=== PATIENT | female | born 1995 | race Caucasian/White ===

== ENCOUNTER 2018-03-03 22:09 | Emergency (ER) | payer OTHER ==
[2018-03-03] MEDS: TETRACAINE 0.5% OPHTH SOLN 4ML OS (22:30)
[2018-03-03] MEDS: FLUORESCEIN OPHTH 1 MG STRIP OD (22:45)
[2018-03-03] MEDS: GENTAMICIN 0.3% OPHTH SOL 5 ML BTL OS (23:11)
== END 2018-03-03 23:14 | disposition home or self-care (01) ==
LOC: M ED 23:14
DX: S05.02XA Injury of conjunctiva and corneal abrasion without foreign body, left eye, initial encounter (principal); X58.XXXA Exposure to other specified factors, initial encounter; Y92.099 Unspecified place in other non-institutional residence as the place of occurrence of the external cause; Y93.9 Activity, unspecified; Y99.9 Unspecified external cause status; Z88.2 Allergy status to sulfonamides
CPT/HCPCS: 99282